=== PATIENT | female | born 2000 | race Hispanic/Latino ===

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

== ENCOUNTER 2020-04-12 15:35 | Emergency (ER) | payer OTHER | END 2020-04-12 16:11 | disposition home or self-care (01) | LOC: ERS 15:35 | DX: Z20.828 Contact with and (suspected) exposure to other viral communicable diseases (principal); F41.9 Anxiety disorder, unspecified | CPT/HCPCS: 87635; 99283; U0003 ==